=== PATIENT | male | born 1995 | race Caucasian/White ===

== ENCOUNTER 2017-07-23 15:59 | Emergency (ER) | payer OTHER ==
[2017-07-23 16:06] VITALS: BP 123/76; PULSE 78; RESP 16; TEMP 96.8; O2SAT 97
--- NOTE | 2017-07-23 16:30 | EDPHY ---
H & P Time Seen by Provider: 07/23/17 16:30 HPI/ROS: CHIEF COMPLAINT: Right shoulder injury HISTORY OF PRESENT ILLNESS: Fell today, pain in the right shoulder, thinks it might be dislocated. No other injuries. REVIEW OF SYSTEMS: No weakness or numbness in right hand and no laceration PAST MEDICAL HISTORY: Left shoulder dislocation 10 days ago Social history: [place] General Appearance: Alert and conversant, cooperative. Patient has no clavicular tenderness but tenderness at the AC joint on the right. No step-off. Normal range of motion of elbow wrist and right shoulder. Normal motor and sensory and vascular in the right hand and wrist. No skin laceration or abrasion. Emergency Department course/MDM: X-ray reviewed with the patient on the computer system. Right AC separation without evidence of dislocation or fracture. Probable type 2. Sling, nonsteroidal, orthopedic follow-up. Smoking Status: Never smoked Constitutional: Initial Vital Signs Temperature (C) 36.0 C 07/23/17 16:03 Heart Rate 78 07/23/17 16:03 Respiratory Rate 16 07/23/17 16:03 Blood Pressure 123/76 H 07/23/17 16:03 O2 Sat (%) 97 07/23/17 16:03 O2 Delivery Mode Room Air Allergies/Adverse Reactions: No Known Allergies Allergy (Unverified 07/23/17 16:03) Home Medications: Medication Instructions Recorded NK [No Known Home Meds] 07/23/17 MDM/Departure - MDM Imaging Results: Imaging Impressions Shoulder X-Ray 07/23/17 16:07 Impression: Possible type II acromioclavicular separation. Imaging: I viewed and interpreted images myself - Depart Disposition: Home, Routine, Self-Care Clinical Impression: AC separation Qualifiers: Encounter type: initial encounter Laterality: right Qualified Code(s): S43.101A - Unspecified dislocation of right acromioclavicular joint, initial encounter Condition: Good Instructions: Acromioclavicular Separation (ED) Additional Instructions: activity as tolerated followup ortho 1 week if not improved Referrals: Mahesh Farrell MD [Medical Doctor] - As per Instructions
== END 2017-07-23 16:53 | disposition home or self-care (01) ==
DX: S43.101A Unspecified dislocation of right acromioclavicular joint, initial encounter (principal); W19.XXXA Unspecified fall, initial encounter
CPT/HCPCS: A4565